=== PATIENT | female | born 1990 | race Caucasian/White ===

== ENCOUNTER 2016-06-17 17:46 | Inpatient (IN) ==
[2016-06-17 18:42] LABS: MANUAL DIFF NEEDED? NO
[2016-06-17] MEDS ORDERED: NS 1,000 ML IV ONE ×2 (18:51→20:27)
[2016-06-17 18:54] LABS: BASO% 0.3 % (0.0-0.8); EOS# 0.06 X1000 (0.0-0.7); EOS% 0.6 % (0.0-10.0); HEMATOCRIT 25.6 % (37.0-47.0); HEMOGLOBIN 8.3 g/dL (12.0-16.0); IMM GRAN# 0.02 X1000 (0.0-0.04); IMM GRAN% 0.2 % (0.0-0.5); LYMPH# 2.53 X1000 (1.2-3.4); LYMPH% 25.8 % (20.5-51.1); MCH 30.4 PG (27-31); MCHC 32.4 g/dL (33-37); MCV 93.8 FL (81-99); MONO# 0.28 X1000 (0.11-0.59); MONO% 2.9 % (1.7-9.3); MPV 9.3 FL (7.4-10.4); NEUT% 70.2 % (42.2-75.2); PLT 402 X1000 (130-400); RBC 2.73 XMIL (4.2-5.4)
[2016-06-17 19:30] LABS: AGAP 12; ALBUMIN 3.6 g/dL (3.5-5.0); ALKALINE PHOSPHATASE 86 U/L (32-104); BUN 12 mg/dL (8-22); CALCIUM 8.3 mg/dL (8.8-10.2); CHLORIDE 104 mmol/L (98-107); COSMO 274; GOT 16 U/L (10-30); GPT 13 U/L (10-36); POTASSIUM 3.2 mmol/L (3.5-5.1); SODIUM 136 mmol/L (136-145); TCO2 20 mmol/L (25-35); TOTAL PROTEIN 6.1 g/dL (6.3-8.3)
--- NOTE | 2016-06-17 20:30 | PROVIDER DOCUMENTATION ---
This chart was entered by Alice Carmona Scribe, acting as scribe for Katy Gallegos PA. HPI-Female /OB/Breast - General Chief Complaint: General Adult Stated Complaint: DIZZY, POST C SECTION BLOOD CLOTS Time Seen by Provider: 06/17/16 18:29 Source: reports: patient Allergies/Adverse Reactions: Patient Allergies Allergy/AdvReac Type Severity Reaction Status Date / Time No Known Allergies Allergy Verified 06/17/16 18:04 Home Medications: Home Medication List Medication Instructions Recorded Confirmed Last Taken Type Docusate Sodium [Colace] 100 mg PO DAILY 06/17/16 06/17/16 06/17/16 History Ferrous Sulfate [Iron] 325 mg PO DAILY 06/17/16 06/17/16 06/17/16 History Hydrocodone/Acetaminophen [[place] 1 each PO Q4-6H PRN PRN 06/17/16 06/17/1606/17 History 10-325 Tablet] Ibuprofen 800 mg PO Q8H PRN PRN 06/17/16 06/17/16 06/17/16 History Norgestrel-Ethinyl Estradiol 1 each PO DIRECTED 06/17/16 06/17/16 06/17/16 History [Elinest-28 Tablet] - History of Present Illness-Female /OB Nature of Presenting Problem: 26 year old F presents to the ED with a cc of vaginal bleeding with an onset of yesterday. PT states that she is 2 weeks post . PT states that she was seen here yesterday for similar and given fluids and a control pill. PT states that about 2 hours ago she began bleeding heavily and passing clots. Does patient report she is ?: No Severity in ED: reports: mild Onset/Duration: reports: 24 hours ago Timing: reports: still present, getting worse Vaginal Symptoms: reports: abnormal bleeding, passing clots/tissue Modifying Factors: improves with: nothing Similar Symptoms Previously?: No Recently seen or treated by another doctor?: Yes Review of Systems - Adult - REVIEW OF SYSTEMS - ADULT Constitutional: denies: chills, fever Eyes: reports: no symptoms reported Ears, Nose, Mouth & Throat: reports: no symptoms reported Cardiovascular: reports: no symptoms reported Respiratory: reports: no symptoms reported Gastrointestinal: denies: nausea, vomiting Genitourinary: reports: other (vaginal bleeding with clots). denies: dysuria, hematuria Musculoskeletal: reports: no symptoms reported Integumentary: reports: no symptoms reported Neurological: reports: no symptoms reported Psychiatric: reports: no symptoms reported Endocrine: reports: no symptoms reported Hematologic/Lymphatic: reports: no symptoms reported Allergic/Immunologic: reports: no symptoms reported All Other Systems: Reviewed and Negative Past History - Adult - PAST MEDICAL HISTORY-ADULT Review of Records: reports: Nursing Assessment Review, Medications Reviewed Major Childhood Illnesses: reports: denies history Psychiatric: reports: depression Endocrine/Immune: reports: anemia - PRIOR SURGERIES/PROCEDURES Surgical/Procedure History: reports: , other (oral) - IMMUNIZATION STATUS Childhood Immunizations: See Nurse Assessment Flu Vaccine: See Nurse Assessment - SOCIAL HISTORY Smoking: non-smoker Substance Use: none/never Alcohol Use Frequency: never Physical Exam-General - PHYSICAL EXAM-ADULT Initial Vital Signs Reviewed: Yes - CONSTITUTIONAL General Appearance: appears well, alert, no apparent distress - RESPIRATORY Respiratory: chest non-tender, lungs clear, normal breath sounds - CARDIOVASCULAR Cardiovascular: normal peripheral pulses, regular rate, rhythm, no edema - GASTROINTESTINAL (ABDOMEN) Abdominal Exam: normal bowel sounds, soft, tenderness (generalized), other ( well healing scar to suprapubic area) - SKIN Integumentary: normal color, normal turgor, warm/dry - PSYCHIATRIC Psych/Mental Status: normal mood/affect, normal thought content, normal thought process, oriented x 3 Progress - PLAN OF CARE/RESULTS Progress/Plan/Lab Results: Vital Signs - 8 hr 06/17/16 18:01 06/17/16 19:02 06/17/16 19:49 Pulse Rate 86 88 86 Pulse Rate [Sitting] Pulse Rate [Standing] Pulse Rate [Supine] Respiratory Rate 20 22 Blood Pressure 115/84 111/74 116/80 Blood Pressure [Sitting] Blood Pressure [Standing] Blood Pressure [Supine] O2 Sat by Pulse Oximetry 98 99 100 06/17/16 20:17 06/17/16 20:22 Pulse Rate 102 H Pulse Rate [Sitting] 101 H Pulse Rate [Standing] 120 H Pulse Rate [Supine] 87 Respiratory Rate 22 Blood Pressure 129/73 Blood Pressure [Sitting] 117/76 Blood Pressure [Standing] 129/73 Blood Pressure [Supine] 115/76 O2 Sat by Pulse Oximetry 100 Laboratory Results - last 24 hr 06/17/16 06/17/16 18:12 18:12 WBC 9.80 RBC 2.73 L Hgb 8.3 L Hct 25.6 L MCV 93.8 MCH 30.4 MCHC 32.4 L RDW Std Deviation 13.0 Plt Count 402 H MPV 9.3 Immature Gran % (Auto) 0.2 Neut % (Auto) 70.2 Lymph % (Auto) 25.8 Moody % (Auto) 2.9 Eos % (Auto) 0.6 Baso % (Auto) 0.3 Immature Gran # (Auto) 0.02 Neut # (Auto) 6.88 H Lymph # (Auto) 2.53 Moody # (Auto) 0.28 Eos # (Auto) 0.06 Baso # (Auto) 0.03 Sodium 136 Potassium 3.2 L Chloride 104 Carbon Dioxide 20 L Anion Gap 12 BUN 12 Creatinine 0.8 Estimated GFR/1.73 m2 > 60 BUN/Creatinine Ratio 15 Glucose 133 H Calculated Osmolality 274 Calcium 8.3 L Total Bilirubin 0.20 AST 16 ALT 13 Alkaline Phosphatase 86 Total Protein 6.1 L Albumin 3.6 Globulin 3.0 Albumin/Globulin Ratio 1.0 Orders Category Date Time Status ED: Orthostatic Vital Signs (E as directed Care 06/17/16 19:56 Active Saline Loc NOW Care 06/17/16 18:30 Active CBC WITH ELECTRONIC DIFF [HEME] Stat Lab 06/17/16 18:12 Completed CMP [COMPREHENSIVE METABOLIC PANEL] [CHEM] Stat Lab 06/17/16 18:12 Completed 0.9% Sodium Chloride Inj [Ns] 1,000 ml Med 06/17/16 18:51 Discontinued IV 999 mls/hr pt did tilt orthostatically Result Diagrams: 06/17/16 18:12 06/17/16 18:12 - CONSULTS/PCP/HOSPITALIST Notification #1 *Consult/PCP/Hospitalist*: Acuff Time Discussed: 20:28 Consult Disposition: Will see in ED, Admit Departure - Departure Time of Disposition Decision: 20:28 DIAGNOSIS: Postoperative vaginal bleeding following genitourinary procedure Disposition: ADMITTED INPATIENT 09 Certified Medical Emergency: Emergent Condition: Stable Referrals and Follow-Ups: None,PCP [Primary Care Provider] - Nedra El MD [STAFF PHYSICIAN] - Attestation - Physician/ TOVA Attestation Patient care was provided by Advanced Practice Provider:: Yes Advanced Practice Provider:: Katy Gallegos Advanced Practice Provider documentation review:: The Mid-level provider documentation, treatment plan and medical decision making was reviewed by the physician who agrees with all treatment and medical decision making by the MLP. This chart was documented by the indicated scribe, (Alice Carmona Scribe) and accurately reflects the services I performed and decisions made by me, Katy Gallegos PA, as attested by the provider's signature.
[2016-06-17] MEDS ORDERED: ZOFRAN ODT PO PRN (21:37)
[2016-06-17] MEDS ORDERED: MOTRIN PO PRN (21:37)
[2016-06-17] MEDS ORDERED: NORCO-5 PO PRN (21:37)
[2016-06-17] MEDS ORDERED: KLOR-CON PO ONE (21:52)
[2016-06-17] MEDS ORDERED: MEGACE PO ONE (22:00)
[2016-06-17] MEDS: LR 1,000 ML IV SCH (22:45)
--- NOTE | 2016-06-17 23:58 | HISTORY AND PHYSICAL ---
CHIEF COMPLAINT: Vaginal bleeding with clots. HISTORY OF PRESENT ILLNESS: Patient is a 26-year-old, g 1, P 1, recently status post primary delivery, on 06/02, for CPD and OP presentation. She was delivered by Dr. Lyles, and had a relatively benign postoperative course. However, she stated that yesterday she started passing blood clots around 2 a.m., and she reports coming to the [facility] emergency room around 4 o'clock in the morning. She states that her blood count was a little low, but the vaginal bleeding would wax and wane, and she was sent home on a control pill taper with Elinest, with the instructions to take a single pill twice a day. She called the answering service this afternoon and spoke to me, and stated that she had difficulties with having the bleeding to stop. She states that she would have dime to the slightly larger than quarter-sized blood clots every time she would come to the bathroom. She denies having a lot of blood in her pads, because she was would run to the toilet before she could collect anything in her pad. She is bottle feeding her baby boy, and she denies any significant abdominal pain. She is relatively dizzy, and that is what presented her to the emergency room again tonight. She had been taking Lasix prescribed by Dr. Lyles, for 5 days, and she reports that the swelling has decreased significantly. She has mild headache and mild nausea, but she also has not eaten anything but a half a biscuit and a few cheese-its today. She has no other complaints at this time. Denies any chest pain, shortness of breath. PAST MEDICAL HISTORY: Significant for remote history of depression requiring medications for a few months and anemia of . [employer]PER[employer]OR HISTORY: Dysmenorrhea controlled with control pills as a teenager, but otherwise normal menstrual periods without menorrhagia SURGICAL HISTORY: 1. She had oral surgery with wisdom teeth and a tooth pulled. 2. She had a on 06/02/2016, as noted above, and delivered an 8 pound, 11 ounce baby boy. MEDICATIONS: She is currently taking Colace 100 mg daily, ferrous sulfate 325 mg daily, Graham 10, 1 p.o. q.4 to 6 hours as needed for pain, ibuprofen 800 mg q.8 hours as needed for pain, as well as, the Elinest control pills twice a day. She did take a pill around 5 o 'clock prior to coming here. ALLERGIES: No known drug allergies. SOCIAL HISTORY: She is and lives with her and son, and she is on maternity leave from [employer]. She has a history of prior tobacco use, as a half a pack a day, but she quit when she found out she was . Denies any alcohol or illicit drugs. FAMILY HISTORY: Significant for a paternal grandfather with a heart attack, as well as, paternal grandmother with colon cancer, who is still alive at age 97. PHYSICAL EXAMINATION: VITAL SIGNS: Blood pressure blood pressure 122/76, heart rate 88, respiratory rate 20, O2 saturation 99% on room air. She did have positive orthostatic/tilt before receiving IV fluids in the emergency room. GENERAL: The patient is awake, alert and oriented, in no acute distress. She is conversant. CHEST: Clear to auscultation bilaterally. CARDIOVASCULAR: Regular rate and rhythm. ABDOMEN: Positive bowel sounds, soft, nontender, nondistended. Uterus palpates approximately 4 cm below her fundus, and feels firm. Incision low transverse is healing well. EXTREMITIES: No clubbing, cyanosis, or edema. GENITOURINARY: External genitalia within normal limits. The vagina appears normal. The cervix is difficult to fully visualize. There is no abnormality seen with manipulation , and she did have approximately 50 mL of dark blood clots removed from her vagina. Cervix appeared closed. CURRENT LABS: White count is 9.8, hemoglobin 8.3, and hematocrit 25.6, platelets are 402,000. CMP significant for a potassium of 3.2, creatinine is 0.98. Normal LFTs. ASSESSMENT AND PLAN: This is a 26-year-old, g 1, P 1, postop day 15, from an uncomplicated primary delivery for cephalopelvic disproportion. 1. We will monitor pad counts and follow hemoglobin and hematocrit, and ultrasound is currently pending. We will give Megace 3 times a day to see if that will stop the bleeding until we can have the results of the ultrasound, as she has not responded very well to the control pill taper. However, she has also only taken a total of 4 pills since it was prescribed. 2. I talked to the patient about the risks and benefits of a blood transfusion, and she is not quite ready to receive one yet. Advised that we will continue IV fluids, however, if she were to remain symptomatic with dizziness, then she likely could benefit from receiving blood. 3. We will monitor how much her blood count is affected with serial hemoglobin and hematocrit. 4. Plan to replace her potassium, and follow closely. cc: Nedra El MD MTDD
[2016-06-18] MEDS ORDERED: MEGACE PO ONE (01:45)
[2016-06-18] MEDS ORDERED: KLOR-CON PO ONE (01:45)
[2016-06-18 02:51] LABS: HEMATOCRIT 18.7 % (37.0-47.0); HEMOGLOBIN 6.1 g/dL (12.0-16.0)
[2016-06-18] MEDS ORDERED: TYLENOL PO ONE (06:22)
[2016-06-18] MEDS ORDERED: BENADRYL PO ONE (06:22)
[2016-06-18] MEDS: LR 1,000 ML IV SCH ×2 (06:46→20:53)
[2016-06-18] MEDS ORDERED: NS 1,000 ML ONE ×2 (07:44→23:02)
[2016-06-18 08:14] LABS: HEMATOCRIT 17.6 % (37.0-47.0)
[2016-06-18 08:25] LABS: HEMOGLOBIN 5.8 g/dL (12.0-16.0)
[2016-06-18] MEDS ORDERED: COLACE PO SCH (09:00)
--- NOTE | 2016-06-18 09:10 | Diag Imaging Result Document ---
PROCEDURE NAME: US PELVIC NON-GROUP SUPERVISOR YARD COMPLETE - 06/17/2016 PELVIC ULTRASOUND WITH TRANSABDOMINAL PROBE: COMPARISON: None available. FINDINGS: Note that the patient is with a section 2 weeks ago. The endometrium is markedly thickened and heterogeneous measuring up to 4.4 cm in thickness. This is even prominent for a uterus. Retained products of conception are possible. However, no focal endometrial mass can be identified. The uterus measures 14.8 x 9.7 x 6.7 cm. Neither the right nor the left ovary could be identified. No discrete adnexal masses are identified. No pelvic free fluid is identified. IMPRESSION: Markedly thickened and heterogeneous endometrium. Please see above discussion.
[2016-06-18] MEDS ORDERED: EPHEDRINE ONE (12:37)
[2016-06-18] MEDS ORDERED: FENTANYL ONE (12:38)
[2016-06-18] MEDS ORDERED: DIPRIVAN 1% ONE (12:39)
[2016-06-18] MEDS ORDERED: PEPCID PO ONE (13:15)
[2016-06-18] MEDS ORDERED: REGLAN IV ONE (13:15)
--- NOTE | 2016-06-18 14:32 | PROGRESS NOTE ---
DATE: 06/18/2016 PROGRESS NOTE/PREOPERATIVE NOTE This is hospital day 2. Patient admitted for vaginal bleeding. She is status post delivery on 06/02. Over the past week, she has experienced an increased amount of vaginal bleeding, presented to the ER, and hemoglobin has fallen from 6 to 5.8. She is currently receiving 2 units of packed red blood cells, and ultrasound suggests the possibility of a retained placenta. Have discussed treatment options with patient. I have decided to proceed with D C. She is being made NPO. Surgery has been notified. Expect to do D C today and discontinue after D C. cc: MD Nedra Farrar MD
[2016-06-18] MEDS ORDERED: PEPCID IV ONE (15:15)
[2016-06-18 17:01] LABS: HEMATOCRIT 25.1 % (37.0-47.0); HEMOGLOBIN 8.2 g/dL (12.0-16.0)
[2016-06-18] MEDS ORDERED: CYTOTEC ONE (18:12)
[2016-06-18] MEDS ORDERED: CYTOTEC PR ONE (18:21)
[2016-06-18] MEDS ORDERED: KEFZOL 1 GM/D5W 1 GM/50 ML IVPB IV SCH (18:30)
[2016-06-18] MEDS ORDERED: ZOFRAN IV ONE (19:00)
[2016-06-18] MEDS ORDERED: MOTRIN PO PRN (19:00)
[2016-06-18] MEDS ORDERED: METHERGINE IV ONE (20:31)
[2016-06-18] MEDS ORDERED: METHERGINE PO ONE (20:31)
[2016-06-18] MEDS: METHERGINE PO SCH (20:35)
[2016-06-18 21:09] LABS: HEMATOCRIT 31.3 % (37.0-47.0); HEMOGLOBIN 10.1 g/dL (12.0-16.0)
[2016-06-18] MEDS ORDERED: HEMABATE ONE ×2 (21:26)
[2016-06-18 21:35] LABS: MANUAL DIFF NEEDED? NO
[2016-06-18] MEDS ORDERED: HEMABATE IM ONE (21:36)
[2016-06-18 21:37] LABS: BASO% 0.4 % (0.0-0.8); EOS# 0.01 X1000 (0.0-0.7); EOS% 0.1 % (0.0-10.0); HEMATOCRIT 30.8 % (37.0-47.0); IMM GRAN# 0.17 X1000 (0.0-0.04); IMM GRAN% 1.2 % (0.0-0.5); LYMPH# 1.68 X1000 (1.2-3.4); LYMPH% 12.3 % (20.5-51.1); MCH 30.7 PG (27-31); MCHC 32.5 g/dL (33-37); MCV 94.5 FL (81-99); MONO# 0.19 X1000 (0.11-0.59); MONO% 1.4 % (1.7-9.3); MPV 9.5 FL (7.4-10.4); NEUT% 84.6 % (42.2-75.2); PLT 312 X1000 (130-400); RBC 3.26 XMIL (4.2-5.4)
[2016-06-18] MEDS ORDERED: ZOFRAN IV PRN (22:05)
--- NOTE | 2016-06-18 22:10 | PROGRESS NOTE ---
DATE: 06/18/2016 SUBJECTIVE: At 9:36, approximately 4 hours after suction dilatation and curettage, Ms. Carmona has had increased vaginal bleeding that is of some concern. She has not gotten her dose of Methergine at this point, so dose is given now. She is somewhat stable. We will obtain a stat CBC and give a dose a Hemabate, consider returning to the OR for a balloon tamponade and also patient is considering a hysterectomy. We will again check CBC and type and cross 2 units of packed red blood cells. cc: MD Nedra Farrar MD
[2016-06-18] MEDS ORDERED: NS 500 ML IV SCH (22:38)
[2016-06-18 23:05] LABS: HEMATOCRIT 23.2 % (37.0-47.0); HEMOGLOBIN 7.7 g/dL (12.0-16.0)
[2016-06-18 23:10] LABS: INR 1.23 (0.86-1.15); PROTIME 15.8 Seconds (12.1-15.5); PTT PL 26.3 Seconds (22.6-43.9)
[2016-06-19] MEDS: MEFOXIN 2 GM/NS 2 GM/50 ML IVPB IV SCH ×5 (02:30→22:50)
--- NOTE | 2016-06-19 04:44 | OPERATIVE NOTE ---
PROCEDURE DATE: PREOPERATIVE DIAGNOSIS: Vaginal bleeding after delivery. POSTOPERATIVE DIAGNOSES: 1. Vaginal bleeding after delivery. 2. Retained products. 3. Possible placenta accreta. PHYSICIAN: Yamil Jameson MD ANESTHESIA: LMA with Dr. Enriquez. FINDINGS: Enlarged uterus. Open cervical os. Increased clots and products of conception. ESTIMATED BLOOD LOSS: 200 mL. PROCEDURE IN DETAIL: Ms. Carmona is a 26-year-old 1, para 1, status post 2 and 1/2 weeks low transverse section for failure to progress, who presented approximately 3 days ago with vaginal bleeding which has increased over time so that now, she has received 2 units of blood and ultrasound reveals possible retained products. She is appropriately consented, brought to the operating room, placed under general LMA anesthesia and prepped and draped in dorsal lithotomy position. The anterior lip of the cervix was grasped with a tenaculum and a #12 suction catheter was introduced and the products were gently suctioned out of clots and what appeared to be tissue. Once this was done, vigorous massage was done and 800 mg of Cytotec was placed rectally. She was having very little bleeding at that time. She was taken down from dorsal lithotomy, placed supine, awakened and taken to the recovery room in stable condition. cc: MD Nedra Farrar MD
[2016-06-19 07:03] LABS: BASO% 0.1 % (0.0-0.8); HEMATOCRIT 26.9 % (37.0-47.0); IMM GRAN# 0.03 X1000 (0.0-0.04); IMM GRAN% 0.2 % (0.0-0.5); LYMPH% 9.3 % (20.5-51.1); MANUAL DIFF NEEDED? YES; MCH 29.7 PG (27-31); MCHC 33.5 g/dL (33-37); MCV 88.8 FL (81-99); MONO# 0.37 X1000 (0.11-0.59); MONO% 2.9 % (1.7-9.3); MPV 9.6 FL (7.4-10.4); NEUT% 87.5 % (42.2-75.2); PLT 211 X1000 (130-400); RBC 3.03 XMIL (4.2-5.4)
[2016-06-19 07:14] LABS: AGAP 14; ALBUMIN 2.8 g/dL (3.5-5.0); ALKALINE PHOSPHATASE 82 U/L (32-104); BUN 8 mg/dL (8-22); CALCIUM 7.2 mg/dL (8.8-10.2); CHLORIDE 107 mmol/L (98-107); COSMO 277; GOT 16 U/L (10-30); GPT 9 U/L (10-36); POTASSIUM 3.3 mmol/L (3.5-5.1); SODIUM 139 mmol/L (136-145); TCO2 18 mmol/L (25-35); TOTAL PROTEIN 4.8 g/dL (6.3-8.3)
[2016-06-19 07:52] LABS: HYPOCHROM OCCASIONAL; LYMPHS 10 % (21-51); MONO 5 % (1-9)
[2016-06-19] MEDS: FERROUS SULFATE PO SCH (08:51)
[2016-06-19] MEDS: METHERGINE PO SCH ×4 (08:51→20:53)
[2016-06-19] MEDS: LR 1,000 ML IV SCH (10:57)
[2016-06-19] MEDS: NORCO-10 PO PRN ×2 (11:32→20:53)
[2016-06-19 14:01] LABS: HEMATOCRIT 23.5 % (37.0-47.0)
[2016-06-19 20:48] LABS: HEMOGLOBIN 7.6 g/dL (12.0-16.0)
[2016-06-20] MEDS: LR 1,000 ML IV SCH (00:29)
[2016-06-20 03:00] LABS: HEMATOCRIT 22.2 % (37.0-47.0); HEMOGLOBIN 7.3 g/dL (12.0-16.0)
[2016-06-20] MEDS: MEFOXIN 2 GM/NS 2 GM/50 ML IVPB IV SCH ×3 (04:15→17:04)
[2016-06-20 08:28] LABS: HEMATOCRIT 23.2 % (37.0-47.0); HEMOGLOBIN 7.5 g/dL (12.0-16.0)
[2016-06-20] MEDS: METHERGINE PO SCH (08:58)
[2016-06-20] MEDS: FERROUS SULFATE PO SCH ×2 (08:58→20:14)
[2016-06-20] MEDS: MYLICON PO PRN (12:19)
[2016-06-20 14:32] LABS: HEMATOCRIT 23.8 % (37.0-47.0); HEMOGLOBIN 7.8 g/dL (12.0-16.0)
[2016-06-20] MEDS ORDERED: PERICOLACE PO SCH (21:00)
[2016-06-20 22:31] LABS: HEMATOCRIT 22.5 % (37.0-47.0); HEMOGLOBIN 7.3 g/dL (12.0-16.0)
[2016-06-21] MEDS: MEFOXIN 2 GM/NS 2 GM/50 ML IVPB IV SCH ×3 (00:25→11:10)
[2016-06-21 02:23] LABS: HEMATOCRIT 21.7 % (37.0-47.0); HEMOGLOBIN 7.2 g/dL (12.0-16.0)
[2016-06-21 08:29] LABS: HEMOGLOBIN 7.6 g/dL (12.0-16.0)
[2016-06-21 11:06] VITALS: BP 134/91
[2016-06-21] MEDS: FERROUS SULFATE PO SCH (11:10)
[2016-06-21] MEDS: MYLICON PO PRN (11:17)
--- NOTE | 2016-06-21 23:03 | DISCHARGE SUMMARY ---
ADMISSION DATE: 06/17/2016 DISCHARGE DATE: 06/21/2016 PRINCIPAL DIAGNOSIS: Retained placenta/vaginal bleeding. SECONDARY DIAGNOSIS: Postop day number 17 status post primary low transverse section. PRINCIPAL PROCEDURE: Suction dilation and curettage. SECONDARY PROCEDURES: Transfusion of packed red blood cells. HOSPITAL COURSE: The patient was admitted on 06/17/2016 for acute vaginal bleeding. Transfusion of 2 units of packed red blood cells was started. Serial H Hs were drawn. After vaginal bleeding persisted, it has decided the patient needed suction dilation and curettage for likely retained placenta. The patient was taken for her suction dilation and curettage on 06/18/2016 and transferred to the 2nd floor once deemed stable. Serial H Hs were resumed; however, patient continued to have vaginal bleeding. Methergine was given as well as an additional 2 units of packed red blood cells. After that time, patient's noted vaginal bleeding with significantly decreased. It continued to decrease throughout the course of her stay. As of today, postop day #3 after the suction dilation and curettage, the patient has minimal vaginal bleeding. She is ambulating without assistance without any sort of syncope or dizziness. The patient is afebrile and vital signs are stable. CONDITION ON DISCHARGE: Stable. ELIMINATION CAPACITY: Independent. FEEDING CAPACITY: Independent. LOCOMOTION CAPACITY: Independent. REHAB POTENTIAL: Good. PROGNOSIS: Good. DISCHARGE MEDICATIONS: Iron sulfate 325 mg 1 tablet p.o. DISCHARGE INSTRUCTIONS: Patient is to resume all home medications. The patient is ordered to call or return if fever greater 100.4, heavy vaginal bleeding, foul smelling vaginal discharge or any acute changes. She is to be discharged home with orders to follow up with Dr. Lyles within 1 week. cc: MD Nedra Juan MD
== END 2016-06-21 14:30 | disposition home or self-care (01) ==
LOC: P.WC 17:46 → P.ED 17:46 → OBSVTOIN 22:21
PROVIDERS: ADMIT Obstetrics & Gynecology; ATTEND Obstetrics & Gynecology
PROC: [UNRECOGNIZED PROCEDURE] (2016-06-18 12:00)